=== PATIENT | female | born 1995 | race Native Hawaiian/Other Pacific Islander ===

== ENCOUNTER 2016-09-06 21:17 | Emergency (ER) | payer OTHER ==
[2016-09-06] MEDS ORDERED: dexameTHASONE 20 MG/5 ML VIAL (J1100) As Ordered ONE (21:45)
[2016-09-06] MEDS ORDERED: diphenhydrAMINE INJ 50MG/ML VIAL (J1200) As Ordered ONE (21:45)
--- NOTE | 2016-09-06 22:50 | EDDOCDS ---
Nurse's Notes [facility] Name: Kalpana Ramirez Age: 21 yrs Sex: Female : 1995 Arrival Date: 09/06/2016 Time: 21:17 Bed 13 Private MD: Katie [facility] [facility] Diagnosis: Allergy status to unspecified drugs, medicaments and biological substances status Presentation: 09/06 21:26 Presenting complaint: Patient states: having an allergic reaction to ion dust 30 dsf minutes ago. pt reports SOB, throat feels tight,skin itchy. Pt reports no reaction to ion dust in past. pt did take 25 mg Benadryl. Onset: The symptoms/episode began/occurred 30 minute(s) ago. The patient has a history of a previous allergic reaction. The previous reaction involved shortness of breath. Anaphylaxis evaluation, the patient reports or I have noted the following symptoms which indicate a significant risk of anaphylaxis: lump in the throat which may suggest laryngeal edema shortness of breath. Adult Sepsis Screening: The patient does not have new or worsening altered mentation. Patient's respiratory rate is less than 22. Systolic blood pressure is greater than 100. Patient has a qSOFA score of 0- Negative Sepsis Screen. Suicide/Homicide risk assessment- the patient denies having any suicidal and/or homicidal ideations and does not present with any other emotional, behavioral or mental health complaints. 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 Transition of care: patient was not received from another setting of care. 21:26 Acuity: RUI Level 3 dsf 21:26 Method Of Arrival: Walkin/Carried/Asstd dsf 21:26 Red Flag criteria, patient assessed and taken directly to a bed. dsf Triage Assessment: 21:31 General: Appears in no apparent distress, Behavior is appropriate for age, cooperative. dsf Pain: Location: all over body Pain currently is 6 out of 10 on a pain scale. HIV screening NA for this visit active duty . EENT: Reports throat feels tight. Respiratory: Airway is patent Respiratory effort is even, unlabored, Respiratory pattern is regular, symmetrical, Reports shortness of breath since 45 minutes ago. 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 Zoloft 100 mg oral tab 1 tab once daily (Last dose: 09/06/2016 08:30) 2. Benadryl 25 mg Oral cap as needed (Last dose: 09/06/2016 20:45) - PMHx: Depression; Hiatal Hernia; PTSD; - PSHx: wisdom teeth; Tonsillectomy; nasal surgery; - Social history: Smoking status: Patient states former smoker of tobacco. No barriers to communication noted, The patient speaks fluent Taiwanese, Speaks appropriately for age. - Family history: Not pertinent. - : The pt / caregiver states he / she is not on anticoagulants. Home medication list is obtained from the patient. - Exposure Risk Screening:: None identified. Screenin:46 Screening information is obtained from the patient. Fall risk: No risks identified. mlc Assistance ADL's: requires no assistance with activities of daily living. Abuse/DV Screen: The patient / caregiver reports he/she is: not in a situation that causes fear, pain or injury. Nutritional screening: No deficits noted. Advance Directives: Currently, there is no health care proxy. home support is adequate. Assessment: 21:43 General: Appears in no apparent distress, Behavior is appropriate for age, cooperative. mgs Neurological: Level of Consciousness is awake, alert, Oriented to person, place, time. Cardiovascular: Capillary refill < 3 seconds. Respiratory: Airway is patent Respiratory effort is even, unlabored, Respiratory pattern is regular, symmetrical, Breath sounds are clear bilaterally. Derm: Skin is pink, warm & dry. 22:46 General: Appears in no apparent distress, comfortable, to be sleeping. awakens easily. mlc Pain: Denies pain. Neurological: Level of Consciousness is awake, alert, Oriented to person, place, time. Respiratory: Airway is patent Respiratory effort is even, unlabored, Respiratory pattern is regular. Vital Signs: 21:21 BP 108 / 67; Pulse 67; Resp 19; Temp 98.4(O); Pulse Ox 100% ; Weight 63.5 kg; Height 5 lr2 ft. 2 in. (157.48 cm); Pain 6/10; 22:23 BP 100 / 61; Pulse 60; Resp 18; Temp 98.4(O); Pulse Ox 98% on R/A; Pain 6/10; pavan 22:46 BP 100 / 58; Pulse 55; Resp 16; Temp 98.8; Pulse Ox 99% ; Pain 0/10; mlc 21:21 Body Mass Index 25.61 (63.50 kg, 157.48 cm) lr2 Vitals: 21:21 Log In Time: September 06, 2016 at 21:17. lr2 ED Course: 21:21 Patient visited by Gillian Beltran. lr2 21:21 [facility] [address] [facility] is Private Physician. lr2 21:21 Patient moved to Waiting lr2 21:21 Patient moved to Pre RCE lr2 21:25 Annie Weiss, HEMANT is Primary Nurse. lr2 21:25 Patient moved to 13 lr2 21:29 Triage Initiated dsf 21:37 Shimon Russell DO is Attending Physician. cs11 21:37 Patient visited by Shimon Russell DO. cs11 21:59 Inserted saline lock: 20 gauge in right antecubital area. mgs 22:15 Primary Nurse role handed off by Annie Weiss RN pavan 22:19 [place] [facility] is Referral Physician. cs11 22:24 Patient visited by Yasemin Rojas PCA. pavan 22:47 [facility] Payment Agreement was scanned into [employer] and attached to record. gjb 22:48 The patient / caregiver is instructed regarding the plan of care and ED course. mlc 22:48 Discontinued IV lock intact, bleeding controlled, pressure dressing applied, No mlc redness/swelling at site. No procedures done that require assistance. Administered Medications: 21:45 Drug: Dexamethasone 12 mg [dexamethasone 4 mg/mL injection solution] Route: IV; Rate: mgs bolus; Site: right antecubital; 21:47 Drug: diphenhydrAMINE 25 mg [diphenhydramine 50 mg/mL injection solution (0.5 mL)] mgs Route: IVP; Site: right antecubital; Order Results: There are currently no results for this order. Outcome: 22:19 Discharge ordered by Provider. cs11 22:48 Discharge Assessment: Patient awake, alert and oriented x 3. No cognitive and/or mlc functional deficits noted. Patient verbalized understanding of disposition instructions. patient administered narcotics - no. The following High Risk Discharge criteria are identified: None. Discharged to home ambulatory, with significant other. Condition: good Condition: stable Condition: improved. Discharge instructions given to patient, Instructed on discharge instructions, follow up and referral plans. Demonstrated understanding of instructions, Pt was receptive of discharge instructions/ teaching. No special radiology studies were completed. Property sent home with patient. 22:48 [place] left the [place]. [facility] [place] Signatures: Yasemin Rojas, PIPE STRAIGHTENER PIPE STRAIGHTENER Rajwinder Morris,RN RN Shimon Conte, DO cs11 Sindhu Bright RN RN Ja Becker RN RN mgs Beck, Gabriela gjb Ross, Laura lr2 MTDD
--- NOTE | 2016-09-06 22:50 | EDDOCDS ---
Physician Documentation [facility] Name: Kalpana Ramirez Age: 21 yrs Sex: Female : 1995 Arrival Date: 09/06/2016 Time: 21:17 Bed 13 Private MD: TAIWO Wilson Disposition: 09/06/16 22:19 Discharged to Home/Self Care. Impression: Allergy status to unspecified drugs, medicaments and biological substances status. - Condition is Stable. - Medication Reconciliation, Local Pharmacy Hours form. - Follow up: TAIWO Wilson; When: Call to arrange an appointment; Reason: Recheck today's complaints. - Problem is new. - Symptoms have improved. Historical: - Allergies: SULFA (SULFONAMIDES) (Rash); - Home Meds: 1. Zoloft 100 mg oral tab 1 tab once daily (Last dose: 09/06/2016 08:30) 2. Benadryl 25 mg Oral cap as needed (Last dose: 09/06/2016 20:45) - PMHx: Depression; Hiatal Hernia; PTSD; - PSHx: wisdom teeth; Tonsillectomy; nasal surgery; - Social history: Smoking status: Patient states former smoker of tobacco. No barriers to communication noted, The patient speaks fluent Kiswahili, Speaks appropriately for age. - Family history: Not pertinent. - : The pt / caregiver states he / she is not on anticoagulants. Home medication list is obtained from the patient. - Exposure Risk Screening:: None identified. 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 2 in. (157.48 cm); Pain 6/10; 22:23 BP 100 / 61; Pulse 60; Resp 18; Temp 98.4(O); Pulse Ox 98% on R/A; Pain 6/10; pavan 22:46 BP 100 / 58; Pulse 55; Resp 16; Temp 98.8; Pulse Ox 99% ; Pain 0/10; mlc 21:21 Body Mass Index 25.61 (63.50 kg, 157.48 cm) lr2 MDM: 21:38 IV Saline Lock ordered. cs11 21:38 diphenhydrAMINE 25 mg IVP once ordered. cs11 21:38 Dexamethasone 12 mg IV at bolus once ordered. cs11 22:46 Financial registration complete. dinah :47 [facility] Payment Agreement was scanned into [employer] and attached to record. gjb Administered Medications: 21:45 Drug: Dexamethasone 12 mg [dexamethasone 4 mg/mL injection solution] Route: IV; Rate: mgs bolus; Site: right antecubital; :47 Drug: diphenhydrAMINE 25 mg [diphenhydramine 50 mg/mL injection solution (0.5 mL)] mgs Route: IVP; Site: right antecubital; Signatures: Rajwinder Cm RN RN dsf Schiff, Craig, DO cs11 Sindhu Bright RN RN mlc Beck, Gabriela gjb Sheldon, Matthew RN mgs The chart was reviewed and I authenticate all verbal orders and agree with the evaluation and treatment provided.Attachments: :47 [facility] Payment Agreement [facility] MTDD
--- NOTE | 2016-09-08 23:50 | EDDOCDS ---
Nurse's Notes [facility] Name: Kalpana Ramirez Age: 21 yrs Sex: Female : 1995 Arrival Date: 09/06/2016 Time: 21:17 Bed 13 Private MD: [place] [facility] [place] [place] Diagnosis: Allergy status to unspecified drugs, medicaments and biological substances status Presentation: 09/06 21:26 Presenting complaint: Patient states: having an allergic reaction to ion dust 30 dsf minutes ago. pt reports SOB, throat feels tight,skin itchy. Pt reports no reaction to ion dust in past. pt did take 25 mg Benadryl. Onset: The symptoms/episode began/occurred 30 minute(s) ago. The patient has a history of a previous allergic reaction. The previous reaction involved shortness of breath. Anaphylaxis evaluation, the patient reports or I have noted the following symptoms which indicate a significant risk of anaphylaxis: lump in the throat which may suggest laryngeal edema shortness of breath. Adult Sepsis Screening: The patient does not have new or worsening altered mentation. Patient's respiratory rate is less than 22. Systolic blood pressure is greater than 100. Patient has a qSOFA score of 0- Negative Sepsis Screen. Suicide/Homicide risk assessment- the patient denies having any suicidal and/or homicidal ideations and does not present with any other emotional, behavioral or mental health complaints. 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 Transition of care: patient was not received from another setting of care. 21:26 Acuity: RUI Level 3 dsf 21:26 Method Of Arrival: Walkin/Carried/Asstd dsf 21:26 Red Flag criteria, patient assessed and taken directly to a bed. dsf Triage Assessment: 21:31 General: Appears in no apparent distress, Behavior is appropriate for age, cooperative. dsf Pain: Location: all over body Pain currently is 6 out of 10 on a pain scale. HIV screening NA for this visit active duty . EENT: Reports throat feels tight. Respiratory: Airway is patent Respiratory effort is even, unlabored, Respiratory pattern is regular, symmetrical, Reports shortness of breath since 45 minutes ago. 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 Zoloft 100 mg oral tab 1 tab once daily (Last dose: 09/06/2016 08:30) 2. Benadryl 25 mg Oral cap as needed (Last dose: 09/06/2016 20:45) - PMHx: Depression; Hiatal Hernia; PTSD; - PSHx: wisdom teeth; Tonsillectomy; nasal surgery; - Social history: Smoking status: Patient states former smoker of tobacco. No barriers to communication noted, The patient speaks fluent Puerto Rican, Speaks appropriately for age. - Family history: Not pertinent. - : The pt / caregiver states he / she is not on anticoagulants. Home medication list is obtained from the patient. - Exposure Risk Screening:: None identified. Screenin:46 Screening information is obtained from the patient. Fall risk: No risks identified. mlc Assistance ADL's: requires no assistance with activities of daily living. Abuse/DV Screen: The patient / caregiver reports he/she is: not in a situation that causes fear, pain or injury. Nutritional screening: No deficits noted. Advance Directives: Currently, there is no health care proxy. home support is adequate. Assessment: 21:43 General: Appears in no apparent distress, Behavior is appropriate for age, cooperative. mgs Neurological: Level of Consciousness is awake, alert, Oriented to person, place, time. Cardiovascular: Capillary refill < 3 seconds. Respiratory: Airway is patent Respiratory effort is even, unlabored, Respiratory pattern is regular, symmetrical, Breath sounds are clear bilaterally. Derm: Skin is pink, warm & dry. 22:46 General: Appears in no apparent distress, comfortable, to be sleeping. awakens easily. mlc Pain: Denies pain. Neurological: Level of Consciousness is awake, alert, Oriented to person, place, time. Respiratory: Airway is patent Respiratory effort is even, unlabored, Respiratory pattern is regular. Vital Signs: 21:21 BP 108 / 67; Pulse 67; Resp 19; Temp 98.4(O); Pulse Ox 100% ; Weight 63.5 kg; Height 5 lr2 ft. 2 in. (157.48 cm); Pain 6/10; 22:23 BP 100 / 61; Pulse 60; Resp 18; Temp 98.4(O); Pulse Ox 98% on R/A; Pain 6/10; pavan 22:46 BP 100 / 58; Pulse 55; Resp 16; Temp 98.8; Pulse Ox 99% ; Pain 0/10; mlc 21:21 Body Mass Index 25.61 (63.50 kg, 157.48 cm) lr2 Vitals: 21:21 Log In Time: September 06, 2016 at 21:17. lr2 ED Course: 21:21 Patient visited by Gillian Beltran. lr2 21:21 [facility] is Private Physician. lr2 21:21 Patient moved to Waiting lr2 21:21 Patient moved to Pre RCE lr2 21:25 Annie Weiss, HEMANT is Primary Nurse. lr2 21:25 Patient moved to 13 lr2 21:29 Triage Initiated dsf 21:37 Shimon Russell DO is Attending Physician. cs11 21:37 Patient visited by Shimon Russell DO. cs11 21:59 Inserted saline lock: 20 gauge in right antecubital area. mgs 22:15 Primary Nurse role handed off by Annie Weiss RN pavan 22:19 [place] [facility] [place] [place]erral Physician. cs11 22:24 Patient visited by Yasemin Rojas PCA. pavan 22:47 [facility] Payment Agreement was scanned into [employer] and attached to record. gjb 22:48 The patient / caregiver is instructed regarding the plan of care and ED course. mlc 22:48 Discontinued IV lock intact, bleeding controlled, pressure dressing applied, No mlc redness/swelling at site. No procedures done that require assistance. Administered Medications: 21:45 Drug: Dexamethasone 12 mg [dexamethasone 4 mg/mL injection solution] Route: IV; Rate: mgs bolus; Site: right antecubital; 21:47 Drug: diphenhydrAMINE 25 mg [diphenhydramine 50 mg/mL injection solution (0.5 mL)] mgs Route: IVP; Site: right antecubital; Order Results: There are currently no results for this order. Outcome: 22:19 Discharge ordered by Provider. cs11 22:48 Discharge Assessment: Patient awake, alert and oriented x 3. No cognitive and/or mlc functional deficits noted. Patient verbalized understanding of disposition instructions. patient administered narcotics - no. The following High Risk Discharge criteria are identified: None. Discharged to home ambulatory, with significant other. Condition: good Condition: stable Condition: improved. Discharge instructions given to patient, Instructed on discharge instructions, follow up and referral plans. Demonstrated understanding of instructions, Pt was receptive of discharge instructions/ teaching. No special radiology studies were completed. Property sent home with patient. 22:48 Patient left the ED. mlc Signatures: Yasemin Rojas, BEAUTY OPERATOR APPRENTICE BEAUTY OPERATOR APPRENTICE Rajwinder Morris,RN RN Shimon Conte, DO cs11 Sindhu Bright RN RN Ja Becker RN RN Michelle Tavarez Laura lr2 Chart Complete MTDD
--- NOTE | 2016-09-08 23:50 | EDDOCDS ---
Physician Documentation [facility] Name: Kalpana Ramirez Age: 21 yrs Sex: Female : 1995 Arrival Date: 09/06/2016 Time: 21:17 Bed 13 Private MD: TAIWO Wilson Disposition: 09/06/16 22:19 Discharged to Home/Self Care. Impression: Allergy status to unspecified drugs, medicaments and biological substances status. - Condition is Stable. - Medication Reconciliation, Local Pharmacy Hours form. - Follow up: TAIWO Wilson; When: Call to arrange an appointment; Reason: Recheck today's complaints. - Problem is new. - Symptoms have improved. Historical: - Allergies: SULFA (SULFONAMIDES) (Rash); - Home Meds: 1. Zoloft 100 mg oral tab 1 tab once daily (Last dose: 09/06/2016 08:30) 2. Benadryl 25 mg Oral cap as needed (Last dose: 09/06/2016 20:45) - PMHx: Depression; Hiatal Hernia; PTSD; - PSHx: wisdom teeth; Tonsillectomy; nasal surgery; - Social history: Smoking status: Patient states former smoker of tobacco. No barriers to communication noted, The patient speaks fluent Telugu, Speaks appropriately for age. - Family history: Not pertinent. - : The pt / caregiver states he / she is not on anticoagulants. Home medication list is obtained from the patient. - Exposure Risk Screening:: None identified. 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 2 in. (157.48 cm); Pain 6/10; 22:23 BP 100 / 61; Pulse 60; Resp 18; Temp 98.4(O); Pulse Ox 98% on R/A; Pain 6/10; pavan 22:46 BP 100 / 58; Pulse 55; Resp 16; Temp 98.8; Pulse Ox 99% ; Pain 0/10; mlc 21:21 Body Mass Index 25.61 (63.50 kg, 157.48 cm) lr2 MDM: 21:38 IV Saline Lock ordered. cs11 21:38 diphenhydrAMINE 25 mg IVP once ordered. cs11 21:38 Dexamethasone 12 mg IV at bolus once ordered. cs11 22:46 Financial registration complete. dinah :47 [facility] Payment Agreement was scanned into [employer] and attached to record. gjb Administered Medications: 21:45 Drug: Dexamethasone 12 mg [dexamethasone 4 mg/mL injection solution] Route: IV; Rate: mgs bolus; Site: right antecubital; :47 Drug: diphenhydrAMINE 25 mg [diphenhydramine 50 mg/mL injection solution (0.5 mL)] mgs Route: IVP; Site: right antecubital; Signatures: Rajwinder Cm RN RN dsf Schiff, Craig, DO DO cs11 Sindhu Bright RN RN mlc Beck, Gabriela gjb Sheldon, Matthew RN mgs The chart was reviewed and I authenticate all verbal orders and agree with the evaluation and treatment provided.Attachments: :47 [facility] Payment Agreement [facility] Chart Complete MTDD
--- NOTE | 2016-09-08 23:50 | EDDOCDS ---
Physician Documentation [facility] Name: Kalpana Ramirez Age: 21 yrs Sex: Female : 1995 Arrival Date: 09/06/2016 Time: 21:17 Bed 13 Private MD: TAIWO Wilson Disposition: 09/06/16 22:19 Discharged to Home/Self Care. Impression: Allergy status to unspecified drugs, medicaments and biological substances status. - Condition is Stable. - Medication Reconciliation, Local Pharmacy Hours form. - Follow up: TAIWO Wilson; When: Call to arrange an appointment; Reason: Recheck today's complaints. - Problem is new. - Symptoms have improved. Historical: - Allergies: SULFA (SULFONAMIDES) (Rash); - Home Meds: 1. Zoloft 100 mg oral tab 1 tab once daily (Last dose: 09/06/2016 08:30) 2. Benadryl 25 mg Oral cap as needed (Last dose: 09/06/2016 20:45) - PMHx: Depression; Hiatal Hernia; PTSD; - PSHx: wisdom teeth; Tonsillectomy; nasal surgery; - Social history: Smoking status: Patient states former smoker of tobacco. No barriers to communication noted, The patient speaks fluent Korean, Speaks appropriately for age. - Family history: Not pertinent. - : The pt / caregiver states he / she is not on anticoagulants. Home medication list is obtained from the patient. - Exposure Risk Screening:: None identified. 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 2 in. (157.48 cm); Pain 6/10; 22:23 BP 100 / 61; Pulse 60; Resp 18; Temp 98.4(O); Pulse Ox 98% on R/A; Pain 6/10; pavan 22:46 BP 100 / 58; Pulse 55; Resp 16; Temp 98.8; Pulse Ox 99% ; Pain 0/10; mlc 21:21 Body Mass Index 25.61 (63.50 kg, 157.48 cm) lr2 MDM: 21:38 IV Saline Lock ordered. cs11 21:38 diphenhydrAMINE 25 mg IVP once ordered. cs11 21:38 Dexamethasone 12 mg IV at bolus once ordered. cs11 22:46 Financial registration complete. dinah :47 [facility] Payment Agreement was scanned into [employer] and attached to record. gjb Administered Medications: 21:45 Drug: Dexamethasone 12 mg [dexamethasone 4 mg/mL injection solution] Route: IV; Rate: mgs bolus; Site: right antecubital; :47 Drug: diphenhydrAMINE 25 mg [diphenhydramine 50 mg/mL injection solution (0.5 mL)] mgs Route: IVP; Site: right antecubital; Signatures: Rajwinder Cm RN RN dsf Schiff, Craig, DO DO cs11 Sindhu Bright RN RN mlc Beck, Gabriela gjb Sheldon, Matthew RN mgs The chart was reviewed and I authenticate all verbal orders and agree with the evaluation and treatment provided.Attachments: :47 [facility] Payment Agreement [facility] Chart Complete MTDD
== END 2016-09-06 22:48 | disposition home or self-care (01) ==
LOC: M ED 21:17
DX: T78.40XA Allergy, unspecified, initial encounter (principal); F43.12 Post-traumatic stress disorder, chronic; K44.9 Diaphragmatic hernia without obstruction or gangrene; Z87.891 Personal history of nicotine dependence; Z79.899 Other long term (current) drug therapy; Z88.2 Allergy status to sulfonamides
CPT/HCPCS: 96374; 96375; 99283; J1100; J1200

== ENCOUNTER 2016-09-30 11:31 | Emergency (ER) | payer OTHER ==
[~2016-09-30] VITALS: Ht 157.5 cm; Wt 63.5 kg
[2016-09-30] MEDS ORDERED: ZOFR20TA PO (11:48)
[2016-09-30] MEDS ORDERED: LIDO5DIS36 TD (11:49)
[2016-09-30] MEDS ORDERED: ZOLO100T PO (11:49)
[2016-09-30] MEDS ORDERED: NS 1,000 ML IV ONE (12:15)
[2016-09-30] MEDS ORDERED: MORPHINE 2 MG/ML 1ML SYRINGE IV ONE (12:15)
[2016-09-30] MEDS ORDERED: ONDANSETRON 4MG/2ML VIAL (J2405) IV ONE (12:15)
[2016-09-30] MEDS ORDERED: KETOROLAC 30 MG/ML VIAL (J1885) IV ONE (12:15)
[2016-09-30 12:57] LABS: BASO % 0.6 % (0.0-1.0); EOS # 0.2 K/mm3 (0.0-0.50); EOS % 3.3 % (0.0-3.0); LARGE UNSTAINED CELL # 0.2 K/mm3 (0.0-0.4); LARGE UNSTAINED CELL % 2.5 % (0.0-4.0); LYMPH # 2.6 K/mm3 (1.5-6.5); LYMPH % 37.2 % (24.0-44.0); MEAN CORPUSCULAR HEMOGLOBIN 28.2 pg (27.0-33.0); MEAN CORPUSCULAR HGB CONC 34.7 g/dl (32.0-36.5); MEAN CORPUSCULAR VOLUME 81.3 fl (80.0-96.0); MONO # 0.3 K/mm3 (0.0-0.8); MONO % 4.7 % (0.0-5.0); NEUTROPHILS # 3.6 K/mm3 (1.8-7.7); NEUTROPHILS % 51.7 % (36.0-66.0); PLATELET COUNT, AUTOMATED 314 k/mm3 (150-450); RED CELL DISTRIBUTION WIDTH 11.3 % (11.5-14.5)
[2016-09-30 13:10] LABS: INR 0.96
[2016-09-30 13:14] LABS: CONTROL LINE HCG INT CTR LINE PRESENT
[2016-09-30 13:27] LABS: ALBUMIN 4.2 GM/DL (3.2-5.2); ALBUMIN/GLOBULIN RATIO 1.24 (1.00-1.93); ALKALINE PHOSPHATASE 62 U/L (45-117); ALT/SGPT 20 U/L (12-78); ANION GAP 7 MEQ/L (8-16); AST/SGOT 13 U/L (15-37); BILIRUBIN,DIRECT 0.2 MG/DL (0.0-0.2); BILIRUBIN,TOTAL 0.6 MG/DL (0.2-1.0); BLOOD UREA NITROGEN 9 MG/DL (7-18); CALCIUM LEVEL 9.1 MG/DL (8.5-10.1); CARBON DIOXIDE LEVEL 29 MEQ/L (21-32); CHLORIDE LEVEL 104 MEQ/L (98-107); CREATININE FOR GFR 0.61 MG/DL (0.55-1.02); GLOMERULAR FILTRATION RATE > 60.0 (>60); GLUCOSE, FASTING 89 MG/DL (70-105); POTASSIUM SERUM 4.2 MEQ/L (3.5-5.1); SODIUM LEVEL 140 MEQ/L (136-145); TOTAL PROTEIN 7.6 GM/DL (6.4-8.2)
--- NOTE | 2016-09-30 13:51 | REP ---
Clinical: Left flank pain. Comparison: 05/27/2016. Findings: Lung bases clear. Visualized heart and pericardium normal. Liver, spleen, pancreas, gallbladder, bilateral adrenal glands and kidneys are normal for noncontrast evaluation. Specifically, there is no perinephric stranding, hydroureteronephrosis, intrarenal or obstructing ureteral calculi. The enteric system is without obstruction or acute inflammatory process. Normal appendix identified in the right lower quadrant. Pelvis demonstrates normal bladder and IUD in age-appropriate uterus. No pelvic fluid or ascites. Normal adnexa. No obvious adenopathy. No free air. Surrounding musculoskeletal structures intact. Impression: Normal noncontrast CT of the abdomen and pelvis. Signed by Siddharth Valdes MD 09/30/2016 01:42 P
--- NOTE | 2016-09-30 15:02 | REP ---
Clinical: Left lower quadrant pain. Rule out ovarian cyst and torsion. Technique: Transabdominal pelvic ultrasound followed by transvaginal examination for better evaluation of the endometrium and adnexa with color Doppler evaluation of the ovaries. Findings: Bladder is unremarkable and measures 8.1 x 5.1 x 3.3 cm . Normal anteverted uterus measures 7.7 x 2.8 x 4.8 cm. The endometrial complex measures 3.8 mm thickness and the IUD is identified in central satisfactory position. No discrete uterine or endometrial abnormalities are appreciated. Bilateral ovaries are normal in appearance and vascularity without evidence for torsion. Right ovary measures 2.8 x 1.9 x 3.5 cm with 1.3 cm dominant follicle ; R I = 0.69. Left ovary measures 2.5 x 1.7 x 2.5 cm ; R I = 0.55. No pelvic fluid or adnexal mass lesion. Impression: 1. Normal anteverted uterus with IUD in satisfactory position. 2. Normal bilateral ovaries with 1.3 cm right dominant follicle. No evidence for torsion. Signed by Siddharth Valdes MD 09/30/2016 02:54 P
[2016-09-30] MEDS ORDERED: ZOFR4TAB3 PO (15:32)
[2016-09-30 15:40] VITALS: BP 92/54
== END 2016-09-30 15:42 | disposition home or self-care (01) ==
LOC: M ED 12:54
DX: R10.9 Unspecified abdominal pain (principal); F17.200 Nicotine dependence, unspecified, uncomplicated; Z79.3 Long term (current) use of hormonal contraceptives; Z79.899 Other long term (current) drug therapy; Z88.2 Allergy status to sulfonamides
CPT/HCPCS: 74176; 76830; 76856; 80048; 80076; 81001; 83690; 84703; 85025; 85610; 87086; 93976; 96374; 96375; 99283; J1885; J2405

== ENCOUNTER 2016-10-28 22:27 | Emergency (ER) | payer OTHER ==
[~2016-10-28] VITALS: Ht 157.5 cm; Wt 63.5 kg
[~2016-10-28 22:27] MED LIST: LIDO5DIS36 TD; ZOFR20TA PO; ZOFR4TAB3 PO; ZOLO100T PO
[2016-10-28 23:51] VITALS: BP 115/68
== END 2016-10-28 23:52 | disposition home or self-care (01) ==
LOC: M ED 23:45
DX: G89.18 Other acute postprocedural pain (principal); F32.9 Major depressive disorder, single episode, unspecified

== ENCOUNTER 2016-11-18 20:24 | Emergency (ER) | payer OTHER ==
[~2016-11-18] VITALS: Ht 157.5 cm; Wt 63.5 kg
[2016-11-18] MEDS ORDERED: PROZ40CA PO (20:30)
[2016-11-18] MEDS ORDERED: NAPROXEN 250 MG TAB PO ONE (20:45)
[2016-11-18] MEDS ORDERED: NAPR500T PO (21:42)
[2016-11-18 21:59] VITALS: BP 122/65
--- NOTE | 2016-11-19 00:59 | REP ---
Clinical: Trauma. Crush injury to third toe. Technique: AP, lateral, bilateral oblique views. Findings: The osseous structures and joint spaces are intact and normal. There is no evidence for acute fracture or dislocation. Surrounding soft tissues are unremarkable. No subcutaneous emphysema or radiodense foreign body. Impression: Normal examination. No acute fracture or dislocation. Signed by Siddharth Valdes MD 11/19/2016 12:50 A
== END 2016-11-18 22:01 | disposition home or self-care (01) ==
LOC: M ED 21:47
DX: S90.121A Contusion of right lesser toe(s) without damage to nail, initial encounter (principal); W22.8XXA Striking against or struck by other objects, initial encounter; Y92.019 Unspecified place in single-family (private) house as the place of occurrence of the external cause; Y93.89 Activity, other specified; Y99.8 Other external cause status; F41.9 Anxiety disorder, unspecified; F32.9 Major depressive disorder, single episode, unspecified; F17.200 Nicotine dependence, unspecified, uncomplicated; Z88.2 Allergy status to sulfonamides; Z79.899 Other long term (current) drug therapy

== ENCOUNTER → 2017-01-27 | Outpatient (CLI) | payer OTHER ==
[~2017-01-27] MED LIST changes: +ACET30TAB PO; +BUSP10TA PO; +CAPS0.022 TOP; +D 50CAP PO; +DULO30CA PO; +FLUO20CA19 PO; +GABA-282 PO; -LIDO5DIS36 TD; +LIDO5DIS41 TD; +MELO15TA4 PO; +MINI1CAP PO; +NAPR500T PO; +PROZ40CA PO; +REGL10TA6 PO; +RIBO100C PO; +TOPI50TA9; +TRAZO50TA PO; +VIST50CA PO; +VITA200038 PO; +VOLT1GEL15 TD
--- NOTE | 2017-01-29 13:03 | ECHO ---
DATE OF PROCEDURE: 01/27/2017 DATE OF : 1995 AGE: 21 REFERRING PROVIDER: Dr. Manoj Golden. PATIENT LOCATION: Outpatient. REASON FOR ECHOCARDIOGRAM: Palpitations. 2D MEASUREMENTS: IVS: 0.84 cm LV: 4.6 cm LVPW: 0.84 cm LA: 3.4 cm Aorta: 2.7 cm IVC: 1.8 cm DOPPLER MEASUREMENTS: Peak velocity across the aortic valve: 0.98 m/s Peak velocity across the LVOT: 0.66 m/s Mitral E: 0.71 Mitral A: 0.38 Ratio 1.9 Tricuspid valve velocity: 1.9 m/s 2D COMMENTS: 1. Normal left ventricular size, wall thickness and normal global left ventricular systolic function. The estimated global left ventricular systolic ejection fraction is 60% to 65%. 2. Normal left atrium. In limited views, the right atrium appeared to be mildly enlarged. Normal right ventricle. 3. The atrial septum appeared to be normal without evidence of defect or shunt. 4. Normal aortic root. 5. No pericardial effusion seen. 6. The aortic valve, mitral valve, tricuspid valve, and pulmonic valve appear to be normal. The proximal pulmonary artery branches appear to be normal. 7. The inferior vena cava was normal in size, central venous pressure is most likely normal. DOPPLER: It detects mild mitral regurgitation and mild to moderate tricuspid regurgitation. The calculated pulmonary artery systolic pressure was normal, probably under estimated. Assessment of the left ventricular diastolic function was normal. IMPRESSION: 1. Normal global left ventricular systolic and diastolic function. 2. Mild mitral regurgitation. 3. Mild to moderate tricuspid regurgitation. The right atrium subjectively appeared to be mildly enlarged. However, calculated pulmonary artery systolic pressure was normal, probably under estimated. Patient may benefit from a bubble study looking for intracardiac shunt. [facility]
== END ==
LOC: M CARPUL 10:30
PROVIDERS: ATTEND Internal Medicine
DX: R00.2 Palpitations (principal)

== ENCOUNTER 2017-02-02 01:01 | Inpatient (IN) | payer OTHER ==
[~2017-02-02] VITALS: Ht 157.5 cm; Wt 69.0 kg
[~2017-02-02 01:01] MED LIST changes: -ACET30TAB PO; -BUSP10TA PO; -CAPS0.022 TOP; -D 50CAP PO; -DULO30CA PO; -FLUO20CA19 PO; -GABA-282 PO; -MELO15TA4 PO; -MINI1CAP PO; -REGL10TA6 PO; -RIBO100C PO; -TOPI50TA9; -TRAZO50TA PO; -VIST50CA PO; -VITA200038 PO; -VOLT1GEL15 TD
[2017-02-02] MEDS ORDERED: VITA200038 PO (01:12)
[2017-02-02] MEDS ORDERED: MELO15TA4 PO ×2 (01:12→04:30)
[2017-02-02] MEDS ORDERED: RIBO100C PO (01:12)
[2017-02-02] MEDS ORDERED: VIST50CA PO (01:12)
[2017-02-02 01:38] LABS: MEAN CORPUSCULAR HGB CONC 35.2 g/dl (32.0-36.5); MEAN CORPUSCULAR VOLUME 82.2 fl (80.0-96.0); RED CELL DISTRIBUTION WIDTH 11.6 % (11.5-14.5); WHITE BLOOD COUNT 9.5 K/mm3 (4.0-10.0)
[2017-02-02 01:57] LABS: CONTROL LINE HCG INT CTR LINE PRESENT
[2017-02-02 02:06] LABS: METHADONE URINE NEGATIVE (NEGATIVE)
[2017-02-02 02:14] LABS: ALBUMIN 3.9 GM/DL (3.2-5.2); ALBUMIN/GLOBULIN RATIO 1.08 (1.00-1.93); ALKALINE PHOSPHATASE 57 U/L (45-117); ALT/SGPT 20 U/L (12-78); ANION GAP 7 MEQ/L (8-16); AST/SGOT 10 U/L (15-37); BILIRUBIN,DIRECT 0.1 MG/DL (0.0-0.2); BILIRUBIN,TOTAL 0.4 MG/DL (0.2-1.0); BLOOD UREA NITROGEN 8 MG/DL (7-18); CALCIUM LEVEL 9.6 MG/DL (8.5-10.1); CARBON DIOXIDE LEVEL 25 MEQ/L (21-32); CHLORIDE LEVEL 107 MEQ/L (98-107); CREATININE FOR GFR 0.66 MG/DL (0.55-1.02); GLOMERULAR FILTRATION RATE > 60.0 (>60); GLUCOSE, FASTING 90 MG/DL (70-105); POTASSIUM SERUM 4.1 MEQ/L (3.5-5.1); SODIUM LEVEL 139 MEQ/L (136-145); TOTAL PROTEIN 7.5 GM/DL (6.4-8.2)
[2017-02-02] MEDS ORDERED: D 50CAP PO (04:30)
[2017-02-02] MEDS ORDERED: CAPS0.022 TOP (04:30)
[2017-02-02] MEDS ORDERED: FLUO20CA19 PO (04:30)
[2017-02-02 08:03] VITALS: BP 128/72
[2017-02-02] MEDS ORDERED: ACETAMINOPHEN TAB 650MG DOSE (2X325MG) PO PRN (09:30)
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
[2017-02-02] MEDS ORDERED: QUEtiapine FUMARATE 12.5 MG HALF-TAB PO PRN (10:45)
[2017-02-02] MEDS: busPIRone 10 MG TAB PO SCH ×3 (11:29→20:35)
[2017-02-02] MEDS: LIDOCAINE 5% (LIDODERM) PATCH TD SCH (11:29)
[2017-02-02] MEDS: DULoxetine 30 MG CAP (CYMBALTA) PO SCH (11:29)
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
[2017-02-02] MEDS: GABAPENTIN 300 MG CAP PO SCH ×2 (12:18→20:35)
[2017-02-02 12:34] VITALS: BP_SYST 110; BP_SYST 112; BP_SYST 114; BP_DIAS 67; BP_DIAS 71; BP_DIAS 72
--- NOTE | 2017-02-02 17:17 | REP ---
REASON FOR EXAM: History of syncopal episodes. COMPARISON: None. TECHNIQUE: 4.5 mm contiguous transaxial sections were obtained from the skull base to the cerebral convexities with thin cuts through the posterior fossa without the administration of intravenous contrast. FINDINGS: The ventricles and sulci are consistent with the patient's age. There are no extra-axial fluid collections. There is no mass effect. The deep cerebral white matter is consistent with the patient's age. The orbital and petrous structures, cerebellopontine angles, and posterior fossa are unremarkable. The sella turcica, cavernous, and paracavernous structures are essentially unremarkable. The visualized portions of the paranasal sinuses and mastoid air cells are clear. Images of the skull base show no gross abnormality. IMPRESSION: Essentially unremarkable CT examination of the brain. Signed by David Osuna DO 02/03/2017 10:11 A
--- NOTE | 2017-02-02 17:41 | ECGEPIP ---
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
[2017-02-02] MEDS: traZODone 50 MG TAB PO SCH (20:35)
[2017-02-02] MEDS: PRAZOSIN 1 MG CAP PO SCH (20:35)
[2017-02-02] MEDS: MELOXICAM (MOBIC) 7.5 MG TAB PO SCH (20:35)
[2017-02-02] MEDS: **NOTE PATIENT COMMENT** MISC XX SCH (20:36)
[2017-02-03] MEDS: busPIRone 10 MG TAB PO SCH ×3 (08:37→21:24)
[2017-02-03] MEDS: GABAPENTIN 300 MG CAP PO SCH ×2 (08:37→21:24)
[2017-02-03] MEDS: DULoxetine 30 MG CAP (CYMBALTA) PO SCH (08:37)
[2017-02-03] MEDS: LIDOCAINE 5% (LIDODERM) PATCH TD SCH (08:39)
--- NOTE | 2017-02-03 08:51 | MHIPNPDOC ---
[facility] Progress Note Progress Note DATE OF SERVICE: 02/03/17 HISTORY: day 2 of admission for depression with suicidal plan. VITAL SIGNS: See below. NEW TEST RESULTS: IMPRESSION: Essentially unremarkable CT examination of the brain.EXAMINATION REQUESTED: CT Head without contrast IMPRESSION: Essentially unremarkable CT examination of the brain.REASON FOR PATIENT VISIT: UNSPECIFIED ANXIETY D/O REASON FOR EXAM/COMMENT: H/O syncopal episodes CURRENT MEDICATIONS: See below. MENTAL STATUS EXAMINATION: Patient is a 21-year old female, who is wearing hospital attire, sitting in bed , wearing glasses, good eye contact and cooperative. Speech: Is clear Language skills are grossly intact Thought processes including: linear Thought content: appropriate Abstract reasoning, and computation: good. Description of associations: good. Description of abnormal or psychotic thoughts: denies hearing voices since admission. Denies thoughts of suicide today. Judgment: good. Insight: good. Orientation: A& O x 4 Recent and remote memory: adequate Attention span and concentration: poor Fund of knowledge: full Mood: "I feel really happy". Affect: congruent DIAGNOSES: 1. PTSD, acute, chronic 2. MDD, severe, single episode 3. ADHD 4. Chronic Pain ASSESSMENT:pt was visited by her last night. she says things are good between them. she reports a night that was free of nightmares and reports good sleep too. She says she feels happy today. She is requesting discharge but she is also requesting pain consult as well. Explained that pain consult can take 3 days. Pt misses her dog and her home & . She says she is tolerating new meds without fatigue, n/v/d. Denies headache or blurred vision. Is ambulating using hand rails in hallway. No falls observed or reported. Denies a syncopal incident since admission Attending groups. Eating at meal time. We will attempt contact with her command to arrange meeting for tomorrow per her request. If she remains in good spirts and feeling well we will discharge her following MICHELLE tomorrow. MANAGEMENT PLAN: Continue new meds, reviewed pt education for pt regarding cymbalta, buspar, trazodone. Enc pt to attend inpatient PTSD treatment prior to leaving the . Pt would benefit from relaxation skills of deep breathing , muscle relaxation, meditation. Continue close observation. TIME SPENT: 15 minutes. Vital Signs Vital Signs Date Time Temp Pulse Resp B/P (MAP) Pulse Ox O2 Delivery O2 Flow Rate FiO2 02/02/17 20:35 132/82 02/02/17 12:34 58 73 86 02/02/17 08:03 16 02/02/17 07:35 97.3 97 Room Air Current Medications Current Medications Acetaminophen (Tylenol Tab) 650 mg Q4HP PRN PO PAIN OR FEVER; Start 02/02/17 at 09:30; Stop 03/04/17 at 09:29 Buspirone HCl (Buspar) 10 mg TID PO Last administered on 02/03/17 08:37; Start 02/02/17 at 09:00; Stop 03/04/17 at 08:59 Duloxetine HCl (Cymbalta) 30 mg QAM PO Last administered on 02/03/17 08:37; Start 02/02/17 at 09:00; Stop 03/04/17 at 08:59 Gabapentin (Neurontin) 300 mg BID PO Last administered on 02/03/17 08:37; Start 02/02/17 at 09:00; Stop 03/04/17 at 08:59 Home Med (Med Rec Complete!) ASDIRECTED XX ; Start 02/02/17 at 04:30; Stop at 04:44; Status DC Lidocaine (Lidoderm Patch) 1 patch DAILY TD Last administered on 02/03/17 08: 39; Start 02/02/17 at 09:00; Stop 03/04/17 at 08:59 Meloxicam (Mobic) 15 mg QHS PO Last administered on 02/02/17 20:35; Start at 21:00; Stop 03/04/17 at 20:59 Miscellaneous (Unresolved Patient Own Med Order) SEE LABEL COMMENTS UNRESOLVED XX ; Start 02/03/17 at 00:01; Stop 03/05/17 at 00:00 Non-Formulary Medication ( See Comment Field Below ) REMOVE LIDODERM PATCH DAILY@21 XX Last administered on 02/02/17 20:36; Start 02/02/17 at 21:00; Stop 03/04/17 at 20:59 Patient Own Medication (Patient'S Own Med) 1 ea DAILY PO ; Start 02/03/17 at 09: 00; Stop 8/26/17 at 08:59; Status UNV Prazosin HCl (Minipress) 1 mg QHS PO Last administered on 02/02/17 20:35; Start 02/02/17 at 21:00; Stop 03/04/17 at 20:59 Quetiapine Fumarate (SEROquel) 12.5 mg Q4HP PRN PO anxiety/agitation; Start at 10:45; Stop 03/04/17 at 10:44 Trazodone HCl (Desyrel) 50 mg QHS PO Last administered on 02/02/17 20:35; Start 02/02/17 at 21:00; Stop 03/04/17 at 20:59 Allergies Coded Allergies: Sulfa Antibiotics (Verified Allergy, Unknown, 09/30/16) anaphylaxis Sierra Waggoner Feb 03, 2017 08:51
[2017-02-03] MEDS ORDERED: ENTER DRUG NAME HERE (PATIENT'S OWN MED) PO SCH (09:00)
[2017-02-03 12:00] VITALS: BP_SYST 117; BP_SYST 124; BP_DIAS 62; BP_DIAS 63; BP_DIAS 68
--- NOTE | 2017-02-03 17:20 | EEG ---
DATE OF PROCEDURE: 02/03/2017 REFERRING PHYSICIAN: Dr. Dave Mitchell DIAGNOSIS: Syncopal episodes, rule out seizures. EEG NUMBER: [id number] HISTORY: The patient is a 21-year-old woman who has a history of chronic migraines and has frequent passing out spells. This EEG was done to rule out epileptic potential. She is currently taking BuSpar, Cymbalta, trazodone, gabapentin, prazosin, Mobic etc. TECHNICAL DESCRIPTION: This digital EEG was recorded by 21 scalp, ear and two EKG electrodes and was reviewed in bipolar and referential montages following reformatting in 10-20 international electrode placement system. INTERPRETATION: The patient was noted to be in awake and drowsy states during this EEG. Resting awake background rhythm consisted of well-formed posterior dominant rhythm with anterior/posterior gradient comprising of 9 Hz alpha activity measuring 15-100 microvolts in amplitude, which was symmetric and reactive to eye opening. Attenuation of posterior dominant rhythm was seen during transition into drowsiness. Stage I and II sleep were reviewed and were symmetric bilaterally. Hyperventilation elicited mild theta slowing of background rhythm. Photic stimulation remained unremarkable. EKG revealed normal sinus rhythm. No focal, lateralizing or epileptiform abnormalities were seen. No clinical or electrographic seizures were recorded. CONCLUSION: This EEG in awake, drowsy states, stage I and II sleep is within normal limits.
[2017-02-03 18:00] VITALS: BP_SYST 119; BP_SYST 121; BP_SYST 129; BP_DIAS 57; BP_DIAS 60; BP_DIAS 65
[2017-02-03] MEDS: MELOXICAM (MOBIC) 7.5 MG TAB PO SCH (21:24)
[2017-02-03] MEDS: traZODone 50 MG TAB PO SCH (21:24)
[2017-02-03 21:25] VITALS: BP 124/63
[2017-02-03] MEDS: PRAZOSIN 1 MG CAP PO SCH (21:25)
[2017-02-03] MEDS: **NOTE PATIENT COMMENT** MISC XX SCH (21:25)
[2017-02-04 06:30] VITALS: BP 132/79
[2017-02-04] MEDS ORDERED: BUSP10TA PO (07:51)
[2017-02-04] MEDS ORDERED: GABA-282 PO (07:51)
[2017-02-04] MEDS ORDERED: TRAZO50TA PO (07:51)
[2017-02-04] MEDS ORDERED: DULO30CA PO (07:51)
[2017-02-04] MEDS ORDERED: MINI1CAP PO (07:51)
[2017-02-04] MEDS: LIDOCAINE 5% (LIDODERM) PATCH TD SCH (08:06)
[2017-02-04] MEDS: busPIRone 10 MG TAB PO SCH (08:07)
[2017-02-04] MEDS: GABAPENTIN 300 MG CAP PO SCH (08:07)
[2017-02-04] MEDS ORDERED: DULoxetine 30 MG CAP (CYMBALTA) PO SCH (09:00)
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
== END 2017-02-04 09:30 | disposition home or self-care (01) | DRG 882 ==
LOC: M ED 01:01 → M ED INP 06:29 → M PSY 08:00
PROVIDERS: ADMIT Psychiatry & Neurology Psychiatry; ATTEND Psychiatry & Neurology Psychiatry
DX: F43.11 Post-traumatic stress disorder, acute (principal); F32.2 Major depressive disorder, single episode, severe without psychotic features; F41.9 Anxiety disorder, unspecified; M54.2 Cervicalgia; F43.12 Post-traumatic stress disorder, chronic; M25.511 Pain in right shoulder; F90.9 Attention-deficit hyperactivity disorder, unspecified type; G43.709 Chronic migraine without aura, not intractable, without status migrainosus; M25.551 Pain in right hip; M25.552 Pain in left hip; Z62.810 Personal history of physical and sexual abuse in childhood; Z62.811 Personal history of psychological abuse in childhood; Z81.1 Family history of alcohol abuse and dependence; Z81.8 Family history of other mental and behavioral disorders; Z87.820 Personal history of traumatic brain injury; Z87.891 Personal history of nicotine dependence; Z79.899 Other long term (current) drug therapy; Z88.2 Allergy status to sulfonamides

== ENCOUNTER 2017-03-15 11:28 | Emergency (ER) | payer OTHER ==
[~2017-03-15] VITALS: Ht 157.5 cm; Wt 68.1 kg
[~2017-03-15 11:28] MED LIST changes: +BUSP10TA PO; +CAPS0.022 TOP; +D 50CAP PO; +DULO30CA PO; +FLUO20CA19 PO; +GABA-282 PO; +MELO15TA4 PO; +MINI1CAP PO; +RIBO100C PO; +TRAZO50TA PO; +VIST50CA PO; +VITA200038 PO
[2017-03-15] MEDS ORDERED: TOPI50TA9 (11:39)
[2017-03-15] MEDS ORDERED: METOCLOPRAMIDE INJ 10MG/2ML VIAL (J2765) IV ONE (12:30)
[2017-03-15] MEDS ORDERED: NS 1,000 ML IV ONE (12:30)
[2017-03-15] MEDS ORDERED: diphenhydrAMINE INJ 50MG/ML VIAL (J1200) IV ONE (12:30)
[2017-03-15] MEDS ORDERED: MORPHINE 4 MG/ML 1ML SYRINGE IV ONE (12:30)
[2017-03-15 13:19] LABS: BASO % 0.6 % (0.0-1.0); EOS # 0.5 K/mm3 (0.0-0.50); EOS % 7.4 % (0.0-3.0); LARGE UNSTAINED CELL # 0.2 K/mm3 (0.0-0.4); LARGE UNSTAINED CELL % 2.9 % (0.0-4.0); LYMPH # 2.3 K/mm3 (1.5-6.5); LYMPH % 34.6 % (24.0-44.0); MEAN CORPUSCULAR HEMOGLOBIN 28.5 pg (27.0-33.0); MEAN CORPUSCULAR HGB CONC 34.9 g/dl (32.0-36.5); MEAN CORPUSCULAR VOLUME 81.6 fl (80.0-96.0); MONO # 0.3 K/mm3 (0.0-0.8); NEUTROPHILS # 3.2 K/mm3 (1.8-7.7); NEUTROPHILS % 49.6 % (36.0-66.0); PLATELET COUNT, AUTOMATED 321 k/mm3 (150-450); RED CELL DISTRIBUTION WIDTH 11.8 % (11.5-14.5); WHITE BLOOD COUNT 6.5 K/mm3 (4.0-10.0)
--- NOTE | 2017-03-15 13:24 | REP ---
Clinical: Syncope . Comparison: 02/02/2017 . Findings: The ventricles, sulci, and cisterns are normal in position and appearance. Jack-white differentiation is maintained. No acute intracranial hemorrhage, mass/mass effect, pathology or trauma/injury. No evidence for acute infarction. No extra-axial fluid collection. Calvarium is intact. Paranasal sinuses and mastoid air cells are clear. Impression: Normal noncontrast head CT. No evidence for acute intracranial pathology or trauma/injury. Signed by Siddharth Valdes MD 03/15/2017 01:16 P
[2017-03-15 13:40] LABS: METHADONE URINE NEGATIVE (NEGATIVE)
[2017-03-15 13:41] LABS: ALBUMIN 3.8 GM/DL (3.2-5.2); ALBUMIN/GLOBULIN RATIO 0.97 (1.00-1.93); ALKALINE PHOSPHATASE 68 U/L (45-117); ALT/SGPT 48 U/L (12-78); ANION GAP 7 MEQ/L (8-16); AST/SGOT 26 U/L (15-37); BILIRUBIN,DIRECT < 0.1 MG/DL (0.0-0.2); BILIRUBIN,TOTAL 0.4 MG/DL (0.2-1.0); BLOOD UREA NITROGEN 7 MG/DL (7-18); CALCIUM LEVEL 8.6 MG/DL (8.5-10.1); CARBON DIOXIDE LEVEL 26 MEQ/L (21-32); CHLORIDE LEVEL 107 MEQ/L (98-107); CREATININE FOR GFR 0.57 MG/DL (0.55-1.02); GLOMERULAR FILTRATION RATE > 60.0 (>60); GLUCOSE, FASTING 91 MG/DL (70-105); POTASSIUM SERUM 3.8 MEQ/L (3.5-5.1); SODIUM LEVEL 140 MEQ/L (136-145); TOTAL PROTEIN 7.7 GM/DL (6.4-8.2)
[2017-03-15 14:16] LABS: ERYTHROCYTE SEDIMENTATION RATE 7 mm/hr (0-20)
[2017-03-15 14:56] VITALS: BP 114/57
--- NOTE | 2017-03-15 21:22 | ECGEPIP ---
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
== END 2017-03-15 14:56 | disposition home or self-care (01) ==
LOC: M ED 11:28
DX: G43.909 Migraine, unspecified, not intractable, without status migrainosus (principal); R55 Syncope and collapse; F41.9 Anxiety disorder, unspecified; F32.9 Major depressive disorder, single episode, unspecified; Z88.2 Allergy status to sulfonamides; Z91.048 Other nonmedicinal substance allergy status; Z79.899 Other long term (current) drug therapy
CPT/HCPCS: 70450; 80048; 80076; 80307; 81001; 81025; 85025; 85652; 86140; 93005; 96374; 96375; 99284; J1200; J2765

== ENCOUNTER 2017-04-16 02:03 | Emergency (ER) | payer OTHER ==
[~2017-04-16] VITALS: Ht 157.5 cm; Wt 73.0 kg
[~2017-04-16 02:03] MED LIST changes: +TOPI50TA9
[2017-04-16] MEDS ORDERED: VOLT1GEL15 TD (02:26)
[2017-04-16] MEDS ORDERED: NS 1,000 ML IV ONE (02:45)
[2017-04-16 03:03] LABS: BASO % 0.4 % (0.0-1.0); EOS # 0.3 10^3/uL (0.0-0.50); EOS % 3.5 % (0.0-3.0); IMMATURE GRANULOCYTE % 0.5 % (0-0); LYMPH # 3.5 10^3/uL (1.5-6.5); LYMPH % 37.8 % (24.0-44.0); MEAN CORPUSCULAR HEMOGLOBIN 28.3 pg (27.0-33.0); MEAN CORPUSCULAR VOLUME 80.9 fl (80.0-96.0); MONO # 0.8 10^3/uL (0.0-0.8); MONO % 8.1 % (0.0-5.0); NEUTROPHILS # 4.6 10^3/uL (1.8-7.7); NEUTROPHILS % 49.7 % (36.0-66.0); PLATELET COUNT, AUTOMATED 372 10^3/uL (150-450); RED CELL DISTRIBUTION WIDTH 11.6 % (11.5-14.5); WHITE BLOOD COUNT 9.3 10^3/uL (4.0-10.0)
[2017-04-16 03:18] LABS: CONTROL LINE HCG INT CTR LINE PRESENT
[2017-04-16 03:25] LABS: ALBUMIN 3.8 GM/DL (3.2-5.2); ALBUMIN/GLOBULIN RATIO 0.93 (1.00-1.93); ALKALINE PHOSPHATASE 65 U/L (45-117); ALT/SGPT 23 U/L (12-78); AMYLASE 46 U/L (25-115); ANION GAP 6 MEQ/L (8-16); AST/SGOT 13 U/L (15-37); BILIRUBIN,DIRECT 0.1 MG/DL (0.0-0.2); BILIRUBIN,TOTAL 0.4 MG/DL (0.2-1.0); BLOOD UREA NITROGEN 9 MG/DL (7-18); CALCIUM LEVEL 8.7 MG/DL (8.5-10.1); CARBON DIOXIDE LEVEL 25 MEQ/L (21-32); CHLORIDE LEVEL 107 MEQ/L (98-107); CREATININE FOR GFR 0.63 MG/DL (0.55-1.02); GLOMERULAR FILTRATION RATE > 60.0 (>60); GLUCOSE, FASTING 97 MG/DL (70-105); SODIUM LEVEL 138 MEQ/L (136-145); TOTAL PROTEIN 7.9 GM/DL (6.4-8.2)
[2017-04-16] MEDS ORDERED: ZOFR4TAB3 PO (03:32)
[2017-04-16 04:21] VITALS: BP 106/64
== END 2017-04-16 04:30 | disposition home or self-care (01) ==
LOC: M ED 02:03
DX: K52.9 Noninfective gastroenteritis and colitis, unspecified (principal); F41.9 Anxiety disorder, unspecified; F33.9 Major depressive disorder, recurrent, unspecified; Z79.899 Other long term (current) drug therapy; Z88.1 Allergy status to other antibiotic agents; Z88.2 Allergy status to sulfonamides; L23.1 Allergic contact dermatitis due to adhesives

== ENCOUNTER 2017-04-29 10:38 | Emergency (ER) | payer OTHER ==
[~2017-04-29] VITALS: Ht 157.5 cm; Wt 74.5 kg
[~2017-04-29 10:38] MED LIST changes: +VOLT1GEL15 TD
[2017-04-29] MEDS ORDERED: diphenhydrAMINE INJ 50MG/ML VIAL (J1200) IV ONE (12:15)
[2017-04-29] MEDS ORDERED: KETOROLAC 30 MG/ML VIAL (J1885) IV ONE (12:15)
[2017-04-29] MEDS ORDERED: methylPREDNISolone INJ 125 MG/2 ML VIAL (J2930) IV ONE (12:15)
[2017-04-29 12:25] LABS: BASO % 0.4 % (0.0-1.0); EOS # 0.2 10^3/uL (0.0-0.50); EOS % 2.3 % (0.0-3.0); IMMATURE GRANULOCYTE % 0.4 % (0-0); LYMPH # 2.5 10^3/uL (1.5-6.5); LYMPH % 32.1 % (24.0-44.0); MEAN CORPUSCULAR HEMOGLOBIN 28.1 pg (27.0-33.0); MEAN CORPUSCULAR HGB CONC 34.8 g/dl (32.0-36.5); MEAN CORPUSCULAR VOLUME 80.8 fl (80.0-96.0); MONO # 0.6 10^3/uL (0.0-0.8); MONO % 7.6 % (0.0-5.0); NEUTROPHILS # 4.5 10^3/uL (1.8-7.7); NEUTROPHILS % 57.2 % (36.0-66.0); PLATELET COUNT, AUTOMATED 314 10^3/uL (150-450); RED CELL DISTRIBUTION WIDTH 11.5 % (11.5-14.5); WHITE BLOOD COUNT 7.9 10^3/uL (4.0-10.0)
[2017-04-29 12:39] LABS: CONTROL LINE UCG INT CTR LINE PRESENT
[2017-04-29 13:16] LABS: ALBUMIN 3.7 GM/DL (3.2-5.2); ALKALINE PHOSPHATASE 51 U/L (45-117); ALT/SGPT 19 U/L (12-78); ANION GAP 8 MEQ/L (8-16); AST/SGOT 11 U/L (15-37); BILIRUBIN,DIRECT 0.1 MG/DL (0.0-0.2); BILIRUBIN,TOTAL 0.6 MG/DL (0.2-1.0); BLOOD UREA NITROGEN 6 MG/DL (7-18); CALCIUM LEVEL 8.7 MG/DL (8.5-10.1); CARBON DIOXIDE LEVEL 25 MEQ/L (21-32); CHLORIDE LEVEL 107 MEQ/L (98-107); CREATININE FOR GFR 0.54 MG/DL (0.55-1.02); GLOMERULAR FILTRATION RATE > 60.0 (>60); GLUCOSE, FASTING 79 MG/DL (70-105); POTASSIUM SERUM 3.7 MEQ/L (3.5-5.1); SODIUM LEVEL 140 MEQ/L (136-145); TOTAL PROTEIN 7.4 GM/DL (6.4-8.2)
--- NOTE | 2017-04-29 13:16 | REP ---
RIGHT UPPER QUADRANT ULTRASOUND: Real-time sonographic evaluation of the right upper quadrant performed. The gallbladder demonstrates no evidence of intraluminal sludge or calculi, wall thickening or pericholecystic fluid. There is no intrahepatic or extrahepatic biliary dilatation, common bile duct measuring 2 mm in diameter. Liver and pancreas are grossly unremarkable, tail is not well seen due to overlying bowel gas. Right kidney demonstrates no hydronephrosis or nephrolithiasis with normal size, measuring 11.6 cm in length. IMPRESSION: Essentially negative right upper quadrant ultrasound. Signed by Hasmukh Jack MD 05/02/2017 09:51 A
--- NOTE | 2017-04-29 13:33 | REP ---
Chest two views HISTORY: Chest pain Comparison: 12/07/2016 The lungs are clear. The heart is normal in size. The pulmonary vasculature is normal in appearance. The bony structure is intact. IMPRESSION: No acute disease. Signed by Brian Jackson MD 04/29/2017 01:25 P
[2017-04-29] MEDS ORDERED: ACET30TAB PO (13:53)
[2017-04-29] MEDS ORDERED: REGL10TA6 PO (13:53)
[2017-04-29 14:04] VITALS: BP 122/86
--- NOTE | 2017-04-30 05:53 | ECGEPIP ---
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
== END 2017-04-29 14:05 | disposition home or self-care (01) ==
LOC: M ED 10:38
DX: R10.10 Upper abdominal pain, unspecified (principal); R07.9 Chest pain, unspecified; F31.9 Bipolar disorder, unspecified; F41.9 Anxiety disorder, unspecified; Z79.899 Other long term (current) drug therapy; Z88.2 Allergy status to sulfonamides; L23.1 Allergic contact dermatitis due to adhesives; Z87.891 Personal history of nicotine dependence; Z86.79 Personal history of other diseases of the circulatory system
CPT/HCPCS: 71020; 76705; 80048; 80076; 81001; 82550; 82553; 83690; 84703; 85025; 93005; 96374; 96375; 99284; J1200; J1885; J2930

== ENCOUNTER 2017-06-03 18:56 | Emergency (ER) | payer OTHER ==
[~2017-06-03] VITALS: Ht 157.5 cm; Wt 75.0 kg
[~2017-06-03 18:56] MED LIST changes: +ACET30TAB PO; +REGL10TA6 PO
[2017-06-03] MEDS ORDERED: NALOXONE INJ 2 MG/2 ML SYRINGE (J2310) IV STA (20:10)
[2017-06-03] MEDS ORDERED: NS 1,000 ML IV ONE (20:45)
[2017-06-03 20:58] LABS: CONTROL LINE HCG INT CTR LINE PRESENT
[2017-06-03 21:02] LABS: ANION GAP 7 MEQ/L (8-16); BLOOD UREA NITROGEN 9 MG/DL (7-18); CALCIUM LEVEL 8.7 MG/DL (8.5-10.1); CARBON DIOXIDE LEVEL 25 MEQ/L (21-32); CHLORIDE LEVEL 109 MEQ/L (98-107); CREATININE FOR GFR 0.63 MG/DL (0.55-1.02); GLOMERULAR FILTRATION RATE > 60.0 (>60); GLUCOSE, FASTING 87 MG/DL (70-105); SODIUM LEVEL 141 MEQ/L (136-145)
[2017-06-03 21:40] VITALS: BP 102/56
--- NOTE | 2017-06-06 08:04 | ECGEPIP ---
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
== END 2017-06-03 21:51 | disposition home or self-care (01) ==
LOC: M ED 18:56
DX: F45.8 Other somatoform disorders (principal); R42 Dizziness and giddiness; F32.9 Major depressive disorder, single episode, unspecified; G89.29 Other chronic pain; F17.200 Nicotine dependence, unspecified, uncomplicated; Z88.2 Allergy status to sulfonamides; Z91.048 Other nonmedicinal substance allergy status; Z79.899 Other long term (current) drug therapy
CPT/HCPCS: 80048; 84703; 93005; 96374; 99284; J2310